=== PATIENT | male | born 1985 | race African-American/Black ===

== ENCOUNTER 2019-11-27 05:34 | Emergency (ER) | payer SELFPAY ==
[2019-11-27 05:33] VITALS: BP 150/92; PULSE 89; RESP 16; TEMP 36.8; O2SAT 100
[2019-11-27] MEDS: TETANUS,DIPHTHERIA,AC PERTUSSIS ADULT (0.5 ML) BOOSTRIX IM (05:57)
--- NOTE | 2019-11-27 06:18 | ED.WOUNDLAC ---
HPI - Wound/Laceration General Chief Complaint: Wound/Laceration Stated Complaint: LAC Time Seen by Provider: 11/27/19 05:46 Source: patient Mode of arrival: EMS Limitations: no limitations History of Present Illness HPI narrative: This patient is a 34 year old male who presents for evaluation of a forehead laceration. Patient states he was at work when this occurred. 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 He denies LOC, headache, dizziness, nausea or vomiting. He has a laceration to his forehead so he was sent to ER for evaluation . He has not other complaints. He is unsure of his last tetanus date. Related Data Allergies Allergy/AdvReac Type Severity Reaction Status Date / Time No Known Allergies Allergy Verified 11/27/19 05:55 Review of Systems Review of Systems: All systems reviewed & are unremarkable except as noted in HPI and below Eyes: Eyes: Reports no additional eye complaints PMFSH Past Medical History Medical History (Updated 11/27/19 @ 06:25 by Tori Barrientos MD) Patient denies medical problems Surgical History Surgical History (Updated 11/27/19 @ 06:21 by Tori Barrientos MD) H/O wrist surgery Exam Const: General: no acute distress and alert Orientation/consciousness: patient oriented x3 HENMT: Head: laceration (midforehead 4 cm into subcutaneous tissue, bleeding controlled) Eyes: Pupils: Equal, round and reactive pupils present EOM: EOMs intact bilaterally Neck: Neck: normal visual inspection Chest: Chest palpation & inspection: normal inspection of the chest Resp: Effort & Inspection: normal respiratory effort Skin: Other: forehead laceration Neuro: General: patient oriented x3 and moves all extremities Psych: Mental Status: mental status grossly normal Affect: normal affect Course Vital Signs Vital signs: Vital Signs Temperature 98.2 F 11/27/19 05:33 Pulse Rate 89 11/27/19 05:33 Respiratory Rate 16 11/27/19 05:33 Blood Pressure 150/92 H 11/27/19 05:33 Pulse Oximetry 100 11/27/19 05:33 Temperature 98.2 F 11/27/19 06:31 Pulse Rate 84 11/27/19 06:31 Respiratory Rate 16 11/27/19 06:31 Blood Pressure 130/75 11/27/19 06:31 Pulse Oximetry 100 09/04/20 06:31 Procedures Laceration Laceration 1: Date: 11/27/19 Time: 06:23 Site: face Size (cm): 4 Description: linear and clean Depth: simple, single layer Local Anesthetic: lidocaine 1% Amount of anesthesia used (mL): 3 Pre-repair: irrigated ====== Skin Level ====== Skin layer closed with: other (fast absorbing gut) Size (cm): 5-0 Number of sutures: 8 Technique: simple, interrupted ====== Subcutaneous Layer ====== ====== Muscle Layer ====== ====== Tendon Layer ====== Discharge Plan Discharge Clinical Impression: Laceration of forehead Qualifiers: Encounter type: initial encounter Qualified Code(s): S01.81XA - Laceration without foreign body of other part of head, initial encounter Patient Disposition: Home, Self-Care Condition: Stable Instructions: Care For Your Absorbable Stitches (ED), Facial Laceration (ED) Additional Instructions: Keep your wound clean and dry. Watch for signs of infection. Follow-up/Referrals: Carmen Cota MD [Physician] - PHYSICIAN,ENGINEERING LABORATORY TECHNICIAN [Primary Care Provider] - Discharge Date/Time: 11/27/19 06:32 Quality [place] Coma Scale Eyes: Open Verbal: Oriented and Alert Motor: Follows Commands [place] Coma Total Score: 15
[2019-11-27 06:31] VITALS: BP 130/75; PULSE 84; RESP 16; TEMP 36.8; O2SAT 100
== END 2019-11-27 06:32 | disposition home or self-care (01) ==
PROVIDERS: Emergency Provider General Practice
DX: S01.81XA Laceration without foreign body of other part of head, initial encounter (principal); W24.0XXA Contact with lifting devices, not elsewhere classified, initial encounter; Z23 Encounter for immunization
CPT/HCPCS: 12013; 90471; 90715; 99282